=== PATIENT | female | born 1930 | race Caucasian/White ===

== ENCOUNTER 2017-10-13 14:43 | Emergency (ER) | payer MEDICARE, OTHER, MEDICAID ==
[2017-10-13 15:19] LABS: Bilirubin Negative (Negative); Blood, Urine Trace (Negative); Clarity Clear (Clear); Glucose, Urine (Dipstick) Negative (Negative); Leukocyte Negative (Negative); Nitrite Negative (Negative); Protein, Urine (Dipstick) Negative (Neg-Trace); Urobilinogen 0.2 mg/dL (0.2-1.0)
[2017-10-13 15:20] LABS: Specific Gravity, Urine 1.028 (1.002-1.036)
[2017-10-13 15:21] LABS: Bacteria/HPF Rare-Few HPF (None Seen); RBC/HPF 0-3 HPF (0-3); Squamous Epithelial 0-3 HPF (0-3); WBC/HPF None Seen HPF (0-3)
[2017-10-13 16:04] LABS: #Basophils 0.1 thou/uL (0.0-0.2); #Lymphocytes 1.3 thou/uL (1.20-3.40); #Monocytes 0.4 thou/uL (0.11-0.59); #Neutrophils 3.6 thou/uL (1.40-6.50); %Eosinophils 0.6 % (0.0-10.0); %Lymphocytes 23.9 % (21.0-51.0); %Monocytes 6.7 % (0.0-10.0); %Neutrophils 67.7 % (42.0-75.0); ALT (SGPT) 13 U/L (8-55); AST (SGOT) 20 U/L (5-34); Albumin 3.9 g/dL (3.4-4.8); Alkaline Phosphatase 101 U/L (40-150); Anion Gap 13 mmol/L (10-20); BUN (Urea Nitrogen) 19 mg/dL (9.8-20.1); Bilirubin, Total 0.4 mg/dL (0.2-1.2); Calc. Creatinine Clearance 0 mL/min (70-130); Calcium 8.7 mg/dL (7.8-10.44); Carbon Dioxide 28 mmol/L (23-31); Chloride 106 mmol/L (98-107); Estimated GFR-MDRD 80; Globulin 2.6 g/dL (2.4-3.5); Glucose 112 mg/dL (83-110); Hemoglobin 12.2 g/dL (12.0-16.0); Lipase 54 U/L (8-78); Mean Corpuscular HGB CONC 34.4 g/dL (32.0-36.0); Mean Corpuscular Hemoglobin 33.4 pg (27.0-31.0); Mean Corpuscular Volume 97.1 fL (78.0-98.0); Mean Platelet Volume 7.2 fL (7.4-10.4); Platelet Count 166 thou/uL (130-400); Potassium 3.6 mmol/L (3.5-5.1); Protein, Total 6.5 g/dL (6.0-8.3); Red Blood Cell (RBC) Count 3.65 mill/uL (4.20-5.40); Sodium 143 mmol/L (136-145); White Blood Cell (WBC) Count 5.3 thou/uL (4.8-10.8)
--- NOTE | 2017-10-13 16:06 | RAD ---
ABDOMINAL SERIES WITH UPRIGHT CHEST AND TWO VIEW ABDOMEN: 10/13/17 HISTORY: Abdominal pain. Lungs show interstitial prominence but no focal infiltrate or significant effusion. Two views of abdomen shows no evidence of free intraperitoneal air. Bowel gas pattern is unremarkable with scattered gas and stool in the colon and scattered small bowel gas. Degenerative spine changes with scoliosis and postoperative changes in the lumbosacral region. IMPRESSION: No acute finding. POS: [facility]
== END 2017-10-13 16:42 | disposition home or self-care (01) ==
LOC: SCSER 14:43
DX: K59.00 Constipation, unspecified (principal); E03.9 Hypothyroidism, unspecified; G30.9 Alzheimer's disease, unspecified; F02.80 Dementia in other diseases classified elsewhere, unspecified severity, without behavioral disturbance, psychotic disturbance, mood disturbance, and anxiety; Z79.899 Other long term (current) drug therapy
CPT/HCPCS: 51701; 74022; 80053; 81003; 81015; 83605; 83690; 85025; 87086; A4353